=== PATIENT | female | born 1975 | race Caucasian/White ===

== ENCOUNTER 2023-12-16 09:39 | Outpatient (CLI) | payer BC | END 2023-12-16 23:59 | disposition home or self-care (01) | LOC: MRI 09:39 | PROVIDERS: ATTEND Pediatrics Sports Medicine | DX: S83.271A Complex tear of lateral meniscus, current injury, right knee, initial encounter (principal); M17.11 Unilateral primary osteoarthritis, right knee; M65.88 Other synovitis and tenosynovitis, other site; M25.461 Effusion, right knee; M25.561 Pain in right knee; Z98.890 Other specified postprocedural states; X58.XXXA Exposure to other specified factors, initial encounter; Y93.89 Activity, other specified; Y92.89 Other specified places as the place of occurrence of the external cause; Y99.8 Other external cause status | CPT/HCPCS: 73721 ==